=== PATIENT | male | born 1950 | race Caucasian/White ===

== ENCOUNTER 2018-03-21 16:02 | Emergency (ER) | payer MEDICARE, MEDICAID ==
[~2018-03-21] VITALS: Ht 193 cm; Wt 105.0 kg
[2018-03-21 16:51] LABS: IMMATURE GRANULOCYTES 0.5 % (0.0-5.0); MEAN CORPUSCULAR HGB 28.8 pG CALC (26.0-32.0); MEAN CORPUSCULAR HGB CONC 32.8 g/L CALC (32.0-36.0); NEUT# 3.81 thou/uL (1.82-7.42); RED BLOOD COUNT 4.37 mill/uL (4.70-6.10); RED CELL DISTRI WIDTH 15.7 % (11.5-15.5)
[2018-03-21] MEDS ORDERED: RANITIDINE HCL150 MG PO (16:51)
[2018-03-21] MEDS ORDERED: TIZANIDINE HCL2 M1 PO (16:51)
[2018-03-21] MEDS ORDERED: METFORMIN HCL500 M1 PO (16:52)
[2018-03-21] MEDS ORDERED: FUROSEMIDE (16:52)
[2018-03-21] MEDS ORDERED: TAMSULOSIN HCL0.4 MG PO (16:53)
[2018-03-21] MEDS ORDERED: LISINOPRIL5 MG PO (16:53)
[2018-03-21] MEDS ORDERED: CARVEDILOL3.125 MG PO (16:53)
[2018-03-21] MEDS ORDERED: CLOPIDOGREL75 MG PO (16:54)
[2018-03-21] MEDS ORDERED: TRAZODONE (16:54)
[2018-03-21 16:55] LABS: HEMATOCRIT 38.4 % (39.0-50.0); HEMOGLOBIN 12.6 g/dl (14.0-18.0); MEAN CELL VOLUME 87.9 fL CALC (80.0-100.0)
[2018-03-21] MEDS ORDERED: POT CHLORIDE10 ME5 PO (16:55)
[2018-03-21] MEDS ORDERED: K-DUR/KLOR-CON20 MEQ PO (16:55)
[2018-03-21] MEDS ORDERED: ATORVASTATIN CA40 MG PO (16:55)
[2018-03-21 17:03] LABS: ALBUMIN 4.2 g/dL (3.2-5.0); ALKALINE PHOSPHATASE 69 u/l (38-126); ANION GAP 15 (6-22 (CALC)); BILIRUBIN, TOTAL 0.5 mg/dL (0.0-1.4); BUN 17 mg/dL (8-23); BUN/CREATININE RATIO 16 (12-20 (CALC)); CARBON DIOXIDE 28 mmol/l (22-30); CHLORIDE 102 mmol/l (95-108); CREATININE 1.1 mg/dL (0.7-1.3); GFR > 60 ML/MIN (>=60 (CALC)); GFR FOR AFR.AMER. > 60 ML/MIN (>=60 (CALC)); SGOT/AST 15 u/l (19-48); SODIUM 141 mmol/l (137-146); TOTAL PROTEIN 7.4 g/dL (6.3-8.2)
[2018-03-21 17:14] LABS: MYOGLOBIN 52 ng/mL (0 - 121)
[2018-03-21] MEDS ORDERED: MECLIZINE25 MG PO (18:25)
[2018-03-21 18:28] VITALS: BP 120/67
== END 2018-03-21 18:37 | disposition home or self-care (01) ==
LOC: ED 16:02
PROVIDERS: Family Medicine
DX: H81.10 Benign paroxysmal vertigo, unspecified ear (principal); R53.1 Weakness; I10 Essential (primary) hypertension; E11.9 Type 2 diabetes mellitus without complications; Z79.84 Long term (current) use of oral hypoglycemic drugs

== ENCOUNTER 2018-07-11 06:50 | Day surgery (SDC) | payer MEDICARE, OTHER ==
[~2018-07-11] VITALS: Ht 193 cm; Wt 102.1 kg
[~2018-07-11 06:50] MED LIST: ATORVASTATIN CA40 MG PO; CARVEDILOL3.125 MG PO; CLOPIDOGREL75 MG PO; FLUOXETINE40 MG PO; FUROSEMIDE; K-DUR/KLOR-CON20 MEQ PO; LISINOP/HCTZ1 TAB PO; LISINOPRIL5 MG PO; MECLIZINE25 MG PO; METFORMIN HCL500 M1 PO; POT CHLORIDE10 ME5 PO; RANITIDINE HCL150 MG PO; TAMSULOSIN HCL0.4 MG PO; TIZANIDINE HCL2 M1 PO; TRAZODONE PO
[2018-07-11 08:58] VITALS: BP 133/83
== END 2018-07-11 09:40 | disposition home or self-care (01) ==
LOC: ORM 06:50
PROVIDERS: ATTEND Anesthesiology Pain Medicine
PROC: 3E0T3BZ Introduction of Anesthetic Agent into Peripheral Nerves and Plexi, Percutaneous Approach (ICD-10-PCS; principal; 2018-07-11)
PROC: 3E0T33Z Introduction of Anti-inflammatory into Peripheral Nerves and Plexi, Percutaneous Approach (ICD-10-PCS; 2018-07-11)
PROC: BR161ZZ Fluoroscopy of Lumbar Facet Joint(s) using Low Osmolar Contrast (ICD-10-PCS; 2018-07-11)
PROC: 3E0T3BZ Introduction of Anesthetic Agent into Peripheral Nerves and Plexi, Percutaneous Approach (ICD-10-PCS; 2018-07-11)
PROC: 3E0T33Z Introduction of Anti-inflammatory into Peripheral Nerves and Plexi, Percutaneous Approach (ICD-10-PCS; 2018-07-11)
PROC: 3E0T3BZ Introduction of Anesthetic Agent into Peripheral Nerves and Plexi, Percutaneous Approach (ICD-10-PCS; 2018-07-11)
PROC: 3E0T33Z Introduction of Anti-inflammatory into Peripheral Nerves and Plexi, Percutaneous Approach (ICD-10-PCS; 2018-07-11)
DX: M54.5 Low back pain (principal); M12.9 Arthropathy, unspecified; M46.1 Sacroiliitis, not elsewhere classified

== ENCOUNTER 2018-07-25 06:07 | Day surgery (SDC) | payer MEDICARE, OTHER ==
[2018-07-25 13:33] VITALS: BP 140/87
== END 2018-07-25 08:47 | disposition home or self-care (01) ==
LOC: ORM 06:07
PROVIDERS: ATTEND Anesthesiology Pain Medicine
PROC: 3E0T3BZ Introduction of Anesthetic Agent into Peripheral Nerves and Plexi, Percutaneous Approach (ICD-10-PCS; principal; 2018-07-25)
PROC: 3E0T33Z Introduction of Anti-inflammatory into Peripheral Nerves and Plexi, Percutaneous Approach (ICD-10-PCS; 2018-07-25)
PROC: BR161ZZ Fluoroscopy of Lumbar Facet Joint(s) using Low Osmolar Contrast (ICD-10-PCS; 2018-07-25)
PROC: 3E0T3BZ Introduction of Anesthetic Agent into Peripheral Nerves and Plexi, Percutaneous Approach (ICD-10-PCS; 2018-07-25)
PROC: 3E0T33Z Introduction of Anti-inflammatory into Peripheral Nerves and Plexi, Percutaneous Approach (ICD-10-PCS; 2018-07-25)
PROC: 3E0T3BZ Introduction of Anesthetic Agent into Peripheral Nerves and Plexi, Percutaneous Approach (ICD-10-PCS; 2018-07-25)
PROC: 3E0T33Z Introduction of Anti-inflammatory into Peripheral Nerves and Plexi, Percutaneous Approach (ICD-10-PCS; 2018-07-25)
DX: M54.5 Low back pain (principal); M47.817 Spondylosis without myelopathy or radiculopathy, lumbosacral region

== ENCOUNTER → 2018-08-06 | Outpatient (REF) | payer MEDICARE, OTHER ==
[2018-08-06 14:22] LABS: GFR 60 ML/MIN (>=60 (CALC)); GFR FOR AFR.AMER. > 60 ML/MIN (>=60 (CALC))
== END | disposition home or self-care (01) ==
LOC: CT 13:31
PROVIDERS: ATTEND Internal Medicine
DX: I71.4 Abdominal aortic aneurysm, without rupture (principal)
CPT/HCPCS: Q9967

== ENCOUNTER 2019-08-09 | Emergency (ER) | payer MEDICARE, OTHER ==
[2019-08-09 19:23] LABS: HEMATOCRIT 35.9 % (39.0-50.0); HEMOGLOBIN 11.7 g/dl (14.0-18.0); IMMATURE GRANULOCYTES 0.4 % (0.0-5.0); MEAN CELL VOLUME 93.2 fL CALC (80.0-100.0); MEAN CORPUSCULAR HGB 30.4 pG CALC (26.0-32.0); MEAN CORPUSCULAR HGB CONC 32.6 g/L CALC (32.0-36.0); NEUT# 5.87 thou/uL (1.82-7.42); RED BLOOD COUNT 3.85 mill/uL (4.70-6.10); RED CELL DISTRI WIDTH 13.7 % (11.5-15.5)
[2019-08-09] MEDS ORDERED: SM STOOL SOFTE PO (19:23)
[2019-08-09] MEDS ORDERED: ASPIRIN81 MG PO (19:30)
[2019-08-09 19:41] LABS: ALBUMIN 4.1 g/dL (3.2-5.0); ALKALINE PHOSPHATASE 63 u/l (38-126); ANION GAP 12 (6-22 (CALC)); BILIRUBIN, TOTAL 0.7 mg/dL (0.0-1.4); BUN 13 mg/dL (8-23); BUN/CREATININE RATIO 11 (12-20 (CALC)); CARBON DIOXIDE 27 mmol/l (22-30); CHLORIDE 105 mmol/l (95-108); CREATININE 1.2 mg/dL (0.7-1.3); GFR 60 ML/MIN (>=60 (CALC)); GFR FOR AFR.AMER. > 60 ML/MIN (>=60 (CALC)); POTASSIUM 4.6 mmol/l (3.5-5.1); SGOT/AST 16 u/l (19-48); SODIUM 139 mmol/l (137-146)
== END 2019-08-09 21:30 | disposition short-term general hospital (02) ==
PROVIDERS: Family Medicine
DX: R00.1 Bradycardia, unspecified (principal); E11.9 Type 2 diabetes mellitus without complications; I10 Essential (primary) hypertension; I25.10 Atherosclerotic heart disease of native coronary artery without angina pectoris; J44.9 Chronic obstructive pulmonary disease, unspecified

== ENCOUNTER 2020-08-31 04:19 | Emergency (ER) | payer MEDICARE, OTHER ==
[~2020-08-31] VITALS: Ht 193 cm; Wt 109.0 kg
[~2020-08-31 04:19] MED LIST changes: +ASPIRIN81 MG PO; +SM STOOL SOFTE PO
[2020-08-31 07:25] LABS: HEMATOCRIT 41.3 % (39.0-50.0); IMMATURE GRANULOCYTES 0.5 % (0.0-5.0); MEAN CELL VOLUME 96.9 fL CALC (80.0-100.0); MEAN CORPUSCULAR HGB 32.6 pG CALC (26.0-32.0); MEAN CORPUSCULAR HGB CONC 33.7 g/dL CAL (32.0-36.0); NEUT# 4.11 thou/uL (1.82-7.42); RED BLOOD COUNT 4.26 mill/uL (4.70-6.10); RED CELL DISTRI WIDTH 14.3 % (11.5-15.5)
[2020-08-31 07:26] LABS: HEMOGLOBIN 13.9 g/dl (14.0-18.0)
[2020-08-31 07:42] LABS: URINE BILIRUBIN - DIPSTICK NEGATIVE (NEGATIVE); URINE BLOOD DIPSTICK NEGATIVE (NEGATIVE); URINE COLOR YELLOW; URINE GLUCOSE - DIPSTICK NEGATIVE (NEGATIVE); URINE KETONE NEGATIVE (NEGATIVE); URINE LEUK ESTERASE NEGATIVE (NEGATIVE); URINE NITRITE - DIPSTICK NEGATIVE (Negative); URINE PROTEIN - DIPSTICK NEGATIVE (NEG-TRACE); URINE UROBILINOGEN - DIPSTICK 0.2 E.U./dL (0.2)
[2020-08-31 07:56] LABS: ALBUMIN 3.9 g/dL (3.2-5.0); ALKALINE PHOSPHATASE 82 u/l (38-126); BILIRUBIN, TOTAL 0.6 mg/dL (0.0-1.4); BUN 10 mg/dL (8-23); BUN/CREATININE RATIO 9 (12-20 (CALC)); CHLORIDE 97 mmol/l (95-108); CREATININE 1.1 mg/dL (0.7-1.3); GFR > 60 ML/MIN (>=60 (CALC)); GFR FOR AFR.AMER. > 60 ML/MIN (>=60 (CALC)); POTASSIUM 3.9 mmol/l (3.5-5.1); SGOT/AST 21 u/l (19-48); SODIUM 138 mmol/l (137-146); TOTAL PROTEIN 6.6 g/dL (6.3-8.2)
[2020-08-31 08:07] LABS: ANION GAP 11 (6-22 (CALC)); CARBON DIOXIDE 34 mmol/l (22-30)
[2020-08-31] MEDS ORDERED: HYDROCO/APAP1 TA9 PO (09:40)
[2020-08-31 09:54] VITALS: BP 119/62
[2020-09-01] MEDS ORDERED: AMLOD/BENAZP1 CA1 PO (00:21)
[2020-09-01] MEDS ORDERED: ATORVASTATIN CA10 MG PO (00:21)
[2020-09-01] MEDS ORDERED: CARVEDILOL6.25 MG PO (00:22)
[2020-09-01] MEDS ORDERED: FIBER ADULT GUM1 CHW PO (00:24)
[2020-09-01] MEDS ORDERED: BISACODYL5 MG PO (00:24)
[2020-09-01] MEDS ORDERED: FLUOXETINE40 MG PO (00:25)
[2020-09-01] MEDS ORDERED: LASIX20 MG PO (00:26)
[2020-09-01] MEDS ORDERED: MELATONIN10 M1 PO (00:28)
[2020-09-01] MEDS ORDERED: PEG335017 GM/SCOO PO (00:29)
[2020-09-01] MEDS ORDERED: TRAZODONE50 MG PO (00:32)
[2020-09-01] MEDS ORDERED: TRAMADOL HCL50 MG PO (00:34)
[2020-09-01] MEDS ORDERED: NAPROXEN500 MG PO (01:24)
== END 2020-08-31 11:05 | disposition home or self-care (01) ==
LOC: ED 04:19
PROVIDERS: Emergency Medicine
DX: M51.17 Intervertebral disc disorders with radiculopathy, lumbosacral region (principal); I72.4 Aneurysm of artery of lower extremity; I71.4 Abdominal aortic aneurysm, without rupture; I72.3 Aneurysm of iliac artery; E11.9 Type 2 diabetes mellitus without complications; I10 Essential (primary) hypertension; I25.10 Atherosclerotic heart disease of native coronary artery without angina pectoris; J44.9 Chronic obstructive pulmonary disease, unspecified; F17.200 Nicotine dependence, unspecified, uncomplicated; Z95.0 Presence of cardiac pacemaker; Z95.1 Presence of aortocoronary bypass graft; Z79.84 Long term (current) use of oral hypoglycemic drugs; Z95.828 Presence of other vascular implants and grafts
CPT/HCPCS: Q9967

== ENCOUNTER 2020-08-31 21:23 | Emergency (ER) | payer MEDICARE, OTHER ==
[~2020-08-31] VITALS: Ht 193 cm; Wt 110.0 kg
[~2020-08-31 21:23] MED LIST changes: +HYDROCO/APAP1 TA9 PO
[2020-08-31 22:12] LABS: HEMATOCRIT 39.3 % (39.0-50.0); HEMOGLOBIN 12.9 g/dl (14.0-18.0); IMMATURE GRANULOCYTES 0.6 % (0.0-5.0); MEAN CELL VOLUME 97.5 fL CALC (80.0-100.0); MEAN CORPUSCULAR HGB CONC 32.8 g/dL CAL (32.0-36.0); NEUT# 2.93 thou/uL (1.82-7.42); RED BLOOD COUNT 4.03 mill/uL (4.70-6.10); RED CELL DISTRI WIDTH 14.5 % (11.5-15.5)
[2020-08-31 22:27] LABS: ALKALINE PHOSPHATASE 84 u/l (38-126); ANION GAP 11 (6-22 (CALC)); BILIRUBIN, TOTAL 0.6 mg/dL (0.0-1.4); BUN 10 mg/dL (8-23); BUN/CREATININE RATIO 7 (12-20 (CALC)); CARBON DIOXIDE 33 mmol/l (22-30); CHLORIDE 95 mmol/l (95-108); CREATININE 1.4 mg/dL (0.7-1.3); GFR 50 ML/MIN (>=60 (CALC)); GFR FOR AFR.AMER. > 60 ML/MIN (>=60 (CALC)); POTASSIUM 3.7 mmol/l (3.5-5.1); SGOT/AST 21 u/l (19-48); SODIUM 135 mmol/l (137-146); TOTAL PROTEIN 6.8 g/dL (6.3-8.2)
[2020-09-01] MEDS ORDERED: AMLOD/BENAZP1 CA1 PO (00:21)
[2020-09-01] MEDS ORDERED: ATORVASTATIN CA10 MG PO (00:21)
[2020-09-01] MEDS ORDERED: CARVEDILOL6.25 MG PO (00:22)
[2020-09-01] MEDS ORDERED: BISACODYL5 MG PO (00:24)
[2020-09-01] MEDS ORDERED: FIBER ADULT GUM1 CHW PO (00:24)
[2020-09-01] MEDS ORDERED: FLUOXETINE40 MG PO (00:25)
[2020-09-01] MEDS ORDERED: LASIX20 MG PO (00:26)
[2020-09-01] MEDS ORDERED: MELATONIN10 M1 PO (00:28)
[2020-09-01] MEDS ORDERED: PEG335017 GM/SCOO PO (00:29)
[2020-09-01] MEDS ORDERED: TRAZODONE50 MG PO (00:32)
[2020-09-01] MEDS ORDERED: TRAMADOL HCL50 MG PO (00:34)
[2020-09-01] MEDS ORDERED: NAPROXEN500 MG PO (01:24)
[2020-09-01 08:24] VITALS: BP 120/68
== END 2020-09-01 08:24 | disposition home or self-care (01) ==
LOC: ED 21:23
PROVIDERS: Emergency Medicine
DX: S00.81XA Abrasion of other part of head, initial encounter (principal); S00.31XA Abrasion of nose, initial encounter; S73.102A Unspecified sprain of left hip, initial encounter; M51.36 Other intervertebral disc degeneration, lumbar region; E11.9 Type 2 diabetes mellitus without complications; I10 Essential (primary) hypertension; I25.10 Atherosclerotic heart disease of native coronary artery without angina pectoris; J44.9 Chronic obstructive pulmonary disease, unspecified; F17.200 Nicotine dependence, unspecified, uncomplicated; W01.0XXA Fall on same level from slipping, tripping and stumbling without subsequent striking against object, initial encounter; Y92.099 Unspecified place in other non-institutional residence as the place of occurrence of the external cause; Z95.1 Presence of aortocoronary bypass graft; Z95.0 Presence of cardiac pacemaker; Z79.84 Long term (current) use of oral hypoglycemic drugs
CPT/HCPCS: Q9967

== ENCOUNTER 2021-02-23 05:50 | Inpatient (IN) | payer MEDICARE, OTHER ==
[2021-02-23] VITALS (14 sets, daily range): BP systolic 123–148; BP diastolic 66–86
[~2021-02-23] VITALS: Ht 193 cm; Wt 117.6 kg
[~2021-02-23 05:50] MED LIST changes: +AMLOD/BENAZP1 CA1 PO; +ATORVASTATIN CA10 MG PO; +BISACODYL5 MG PO; +CARVEDILOL6.25 MG PO; +FIBER ADULT GUM1 CHW PO; +LASIX20 MG PO; +MELATONIN10 M1 PO; +NAPROXEN500 MG PO; +PEG335017 GM/SCOO PO; +TRAMADOL HCL50 MG PO; +TRAZODONE50 MG PO
--- NOTE | 2021-02-23 06:00 | NUR ---
PT ARRIVED VIA EMS WITH SOB/ON NRB. A/O RESP.
[2021-02-23] MEDS ORDERED: ANTIFUNGAL TOP (06:49)
[2021-02-23] MEDS ORDERED: BANOPHEN50 MG PO (07:01)
[2021-02-23 07:02] LABS: HEMATOCRIT 40.3 % (39.0-50.0); HEMOGLOBIN 13.7 g/dl (14.0-18.0); IMMATURE GRANULOCYTES 0.4 % (0.0-5.0); MEAN CELL VOLUME 97.3 fL CALC (80.0-100.0); MEAN CORPUSCULAR HGB 33.1 pG CALC (26.0-32.0); NEUT# 5.42 thou/uL (1.82-7.42); RED BLOOD COUNT 4.14 mill/uL (4.70-6.10); RED CELL DISTRI WIDTH 12.7 % (11.5-15.5)
[2021-02-23] MEDS ORDERED: DULCOLAX5 MG PO (07:02)
[2021-02-23] MEDS ORDERED: ERYTHROMYCI3 OU (07:05)
[2021-02-23] MEDS ORDERED: ALLERGY NA50 MCG/ACT IN (07:08)
[2021-02-23] MEDS ORDERED: LORTAB 1010 MG PO (07:11)
[2021-02-23 07:18] LABS: ALBUMIN 3.7 g/dL (3.2-5.0); ALKALINE PHOSPHATASE 81 u/l (38-126); ANION GAP 12 (6-22 (CALC)); BILIRUBIN, TOTAL 0.8 mg/dL (0.0-1.4); BUN 11 mg/dL (8-23); BUN/CREATININE RATIO 11 (12-20 (CALC)); CARBON DIOXIDE 32 mmol/l (22-30); CHLORIDE 97 mmol/l (95-108); GFR > 60 ML/MIN (>=60 (CALC)); GFR FOR AFR.AMER. > 60 ML/MIN (>=60 (CALC)); LIPASE 79 u/l (23-300); POTASSIUM 3.2 mmol/l (3.5-5.1); SGOT/AST 27 u/l (19-48); SODIUM 138 mmol/l (137-146); TOTAL PROTEIN 7.2 g/dL (6.3-8.2)
[2021-02-23 07:24] LABS: D-DIMER 3.32 mg/L (0.19-0.60)
[2021-02-23 07:42] LABS: ACT PARTIAL THROMBO TIME 24.5 SECONDS (20.0-32.5); PROTHROMBIN TIME 10.2 SECONDS (9.0-12.5)
--- NOTE | 2021-02-23 09:18 | NUR ---
[facility]APID RESPONSE CALLED AND I ARRIVED IN CT SCAN. PATIENT WAS UNRESPONSIVE AT THE TIME. TECHNICAL WRITING LEAD/MGR REPORTS PATIENT WAS GIVEN THE IV CONTRAST AND REPORTS TINGLING OF LIPS AND THEN WENT UNRESPONSIVE. CALL PLACED TO MD AND PATIENT IS BEING TRABSPORTED BACK TO ER.
--- NOTE | 2021-02-23 09:28 | NUR ---
PATIENT TO ROOM 14, DR ACKERMAN MET AT WHILE TRANSPORTING BACK TO ED. PATIENT REMAINS UNRESPONSIVE. SPO2 68% ON ROOM AIR. PATIENT PLACED ON NB AT 15L. DR ACKERMAN GAVE VERBAL ORDER FOR 0.3 MG OF EPI IM, 50 MG OF BENADRYL IV, 40 MG OF PEPCID, IVP AND 124 MG SOLUMEDROL, IVP. ALL MEDICATIONS GIVEN PERVERBAL ORDER. PATIENT SPO2 REMAINS 80% ON NONREBREATHER.
--- NOTE | 2021-02-23 09:35 | NUR ---
PATIENT INTUBATED BY DR ACKERMAN WITH NO DIFFICULTY WITH A 7.5 ET TUBE MEASURING 29 AT THE LIP. PT SPO2 85% BVM.
--- NOTE | 2021-02-23 09:39 | NUR ---
PATIENT HAS NO PULSE AT THIS TIME. PEA ON THE MONITOR. CODE CALLED. CPR INITIATED. 1 ROUND OF EPI GIVEN AT 0940 AND CPR CONTINUED. 942 PULSE CHECK, STRONG FEMORAL PULSE PALPATED BY DR ACKERMAN. 0946 PATIENT PLACED ON VENT. 0950 PROPOFOL INITIATED AT 10 MCG/KG/MIN. PATIENT REMAINS SEDATED.
--- NOTE | 2021-02-23 10:05 | NUR ---
PROPOFOL INCREASED TO 15 MCG/KG/MIN. PATIENT BP TRENDING DOWN. 113/68. MLP AWARE. UNABLE TO OBTAIN A SECOND IV ACCESS AT THIS TIME. MLP WILL PLACE CENTRAL LINE.
--- NOTE | 2021-02-23 10:15 | NUR ---
PROPOFOL STOPPED AT THIS TIME DUE TO BP OF 75/50. MD NOTIFIED. AWAITING CENTRAL LINE PLACEMENT. UNABLE TO OBTAIN IV ACCESS.
--- NOTE | 2021-02-23 10:24 | NUR ---
EPT GTT INITIATED DUE TO HYPOTENSION AT 5 MCG.
--- NOTE | 2021-02-23 10:34 | NUR ---
PATIENT HYPOTENSIVE AND HAVING SOME MOVEMENTS. MD NOTIFIED. VERBAL ORDER FOR 2 MG OF VERSED GIVEN. 2 MG GIEVN IVP.
--- NOTE | 2021-02-23 11:00 | NUR ---
CETRAL LINE PLACED TO RIGHT IJ WITH NO DIFFICULTY. PT BP 95/56.
--- NOTE | 2021-02-23 11:30 | NUR ---
CARE RELINQUISHED TO ROSARIO LARA. PATIENT REMAINS SEDATED. VERSED DRIP AT 2 MG PER HOUR, POTASSIUM INFUSING, AND EPI GTT INFUSING AT 10 MCG.
[2021-02-23 12:24] LABS: ALKALINE PHOSPHATASE 67 u/l (38-126); BILIRUBIN, TOTAL 0.6 mg/dL (0.0-1.4); BUN 11 mg/dL (8-23); BUN/CREATININE RATIO 10 (12-20 (CALC)); CHLORIDE 101 mmol/l (95-108); CREATININE 1.1 mg/dL (0.7-1.3); GFR > 60 ML/MIN (>=60 (CALC)); GFR FOR AFR.AMER. > 60 ML/MIN (>=60 (CALC)); POTASSIUM 3.2 mmol/l (3.5-5.1); SGOT/AST 38 u/l (19-48); SODIUM 134 mmol/l (137-146)
[2021-02-23 12:27] LABS: ALBUMIN 2.6 g/dL (3.2-5.0); ANION GAP 11 (6-22 (CALC)); CARBON DIOXIDE 25 mmol/l (22-30); TOTAL PROTEIN 5.1 g/dL (6.3-8.2)
--- NOTE | 2021-02-23 14:00 | NUR ---
VERSED gtt INCREASED TO 30ml's/hour
--- NOTE | 2021-02-23 14:47 | NUR ---
S: EVERETTE HERNANDEZ is a 71 M who presents with pneumonia. He has a history of diabetes, HTN, CAD, COPD. All medications in patient's chart were reviewed. O: VS: BP 166/86 mmHg, P 88 bpm, RR 17 bpm, T 98.2 F W 109 kg, HT 76 in, Scr= 1.1 mg/dl, CrCl= 83.4 ml/min A: Blood culture is pending. P: Patient is on cefepime 2 g IV Q8H and metronidazole 500 mg IV Q8H. Vancomycin ordered for pharmacy to dose. Start Vancomycin 1250 mg IV Q12H. Vancomycin trough is drawn before the 4th dose on 02/25/21 @ 0530. Vancomycin goal trough is between 15-20 mcg/ml. Pharmacy will follow and or advise on antibiotics use as needed.
--- NOTE | 2021-02-23 14:49 | NUR ---
Reassessment of patient completed. No distress noted. PATIENT REMAINS ON VENTILATOR
--- NOTE | 2021-02-23 15:05 | NUR ---
CALL TO ICU FOR REPORT
--- NOTE | 2021-02-23 15:21 | NUR ---
VERSED gtt. INCREASED TO 35/ML/HOUR
--- NOTE | 2021-02-23 15:34 | NUR ---
CALL TO ICU FOR REPORT
--- NOTE | 2021-02-23 18:30 | NUR ---
PATIENT TO ICU BED 2 VIA ER STRETCHER ACCOMPANIED BY ER NURSE AND RT. PATIENT IS INTUBATED AND SEDATED. PATIENT PLACED ON MONITOR. VSS AT THIS TIME. SR TO ST ON MONITOR. IV PATENT X2. IV MEDS INFUSING PER AUG.
--- NOTE | 2021-02-23 20:00 | NUR ---
PATIENT INTUBATED, ON VENT. VENT SETTINGS DOCUMENTED IN INTERVENTIONS. VERSED GTT INFUSING AT 5 MG/HR FOR SEDATION. RASS -3. BREATH SOUNDS DIMINISHED ESSENTIALLY CLEAR. O2 SAT 98% OG IN PLACE TO LIS DRAINS SMALL AMOUNT OF CLEAR MATERIAL. SUX ETT FOR SCANT AMOUNT AND ORALLY FOR MODERATE AMOUNT OF THICK WHITE SECRETIONS. NO PERIPHERAL EDEMA. BAGLEY DRAINS CLEAR YELLOW URINE. RIJTLC IN PLACE WITH VERSED GTT INFUSING AT 5 MG/HR AND EPINEPHERINE GTT INFUSING AT 10 MCG/MIN. VSS. SOCK LINING EXAMINER SHOWS PACED RHYTH.
--- NOTE | 2021-02-23 22:00 | NUR ---
INTUBATED AND SEDATED. RASS-3. VERSED GTT CONTIUES AT 5 MG/HR. EPI GTT DOWN TO 6 MCG/MIN. VSS. PACED ON MONITOR.
[2021-02-24] VITALS (26 sets, daily range): BP systolic 118–175; BP diastolic 64–86
--- NOTE | 2021-02-24 | NUR ---
WEANING EPI GTT, DOWN TO 4 MCG/MIN. PATIENT CONTINUES ON VENT. VSS.
--- NOTE | 2021-02-24 02:00 | NUR ---
VSS. PACED ON MONITOR.
--- NOTE | 2021-02-24 04:00 | NUR ---
REMAINS INTUBATED, SEDATED ON VERSED GTT AT 5 MG/HR. VSS.
--- NOTE | 2021-02-24 04:00 | NUR ---
NO CHANGES TO REPORT. REMAINS INTUBATED AND SEDATED. EPI GTT WEANED OFF EARLIER. VSS. BAGLEY DRAINS CLEAR YELLOW.
[2021-02-24 06:12] LABS: CREATININE 1.4 mg/dL (0.7-1.3); HEMATOCRIT 39.1 % (39.0-50.0); HEMOGLOBIN 13.1 g/dl (14.0-18.0); MEAN CELL VOLUME 98.2 fL CALC (80.0-100.0); MEAN CORPUSCULAR HGB 32.9 pG CALC (26.0-32.0); MEAN CORPUSCULAR HGB CONC 33.5 g/dL CAL (32.0-36.0); POTASSIUM 3.6 mmol/l (3.5-5.1); RED BLOOD COUNT 3.98 mill/uL (4.70-6.10)
--- NOTE | 2021-02-24 08:30 | NUR ---
INFORMED MD OF DOWNWARD DEVIATED GAZE
--- NOTE | 2021-02-24 09:46 | NUR ---
Patient is screened for PT and no needs are immediately identified although a future consult may be indicated if medical agrees
--- NOTE | 2021-02-24 10:15 | NUR ---
TRANSPORTED PT WITH RT TO CT FOR CT HEAD. NO S/S OF DISTRESS NOTED
--- NOTE | 2021-02-24 11:27 | NUR ---
Pt screened by ST. Intervention recommended pending extubation. COLOR MAKER DYER will continue to follow for updated status.
--- NOTE | 2021-02-24 16:18 | NUR ---
TITRATING VERESED DOWN, NO RESPONSE TO PAIN, OR VERBAL STIMULATION
--- NOTE | 2021-02-24 19:06 | NUR ---
PEÑA MANCIA SPOKE TO CHANDNI WAS GIVEN CONFIRMATION NUMBER [id number] FOR AIR MATTRESS.
--- NOTE | 2021-02-24 20:00 | NUR ---
PATIENT RESTING IN BED INTUBATED, ON VENT. VENT SETTINGS DOCUMENTED IN INTERVENTION SCREEN. SEDATED ON VERSED GTT AT 2 MG/HR. RASS -4 TO -5. BREATH SOUNDS DIMINISHED THROUGHOUT LUNG LOUISE. OG TUBE IN PLACE TO LIS, DRAINING GREENISH/GOLD. BAGLEY DRAINS CLEAR YELLOW URINE. URINE OBTAINED FOR UA. TRACE GENERALIZED EDEMA PRESENT. SCD'S ON BILATERALLY. LIJ TLC IN PLACE AND SALINE LOCK INTACT IN LAC, SITE BENIGN. BOAT WORKER SHOWS PACED RHYTHM
--- NOTE | 2021-02-24 22:00 | NUR ---
INTUBATED AND SEDATED. REMAINS ON VERSED GTT. VSS. PACED RHYTHM ON MONITOR.
[2021-02-25] VITALS (41 sets, daily range): BP systolic 138–229; BP diastolic 69–108
--- NOTE | 2021-02-25 | NUR ---
NO CHANGES TO RPEORT. REMAINS INTUBATED AND SEDATED. VSS. PACED RHYTHM ON MONITOR.
[2021-02-25 00:48] LABS: URINE BILIRUBIN - DIPSTICK NEGATIVE (NEGATIVE); URINE BLOOD DIPSTICK NEGATIVE (NEGATIVE); URINE COLOR YELLOW; URINE GLUCOSE - DIPSTICK NEGATIVE (NEGATIVE); URINE KETONE TRACE mg/dL (NEGATIVE); URINE LEUK ESTERASE NEGATIVE (NEGATIVE); URINE PROTEIN - DIPSTICK 30 mg/dL (NEG-TRACE); URINE UROBILINOGEN - DIPSTICK 0.2 E.U./dL (0.2)
[2021-02-25 00:49] LABS: URINE NITRITE - DIPSTICK NEGATIVE (Negative)
[2021-02-25 00:56] LABS: URINE COARSE GRANULAR CAST FEW lpf; URINE SQUAMOUS EPITHELIAL CELL FEW EPI/hpf (0-FEW)
--- NOTE | 2021-02-25 04:30 | NUR ---
BLOOD DRAWN FROM [facility] FOR AM LAB WORK. ALL LUMENS OF TLC FLUSHED AND PATENT WITH GOOD BLOOD RETURN.
--- NOTE | 2021-02-25 05:00 | NUR ---
COMPLETE BED BATH GIVEN AND LINENS CHANGED. REPOSITONED IN BED.
[2021-02-25 05:49] LABS: HEMATOCRIT 37.4 % (39.0-50.0); HEMOGLOBIN 12.3 g/dl (14.0-18.0); IMMATURE GRANULOCYTES 1.3 % (0.0-5.0); MEAN CELL VOLUME 99.7 fL CALC (80.0-100.0); MEAN CORPUSCULAR HGB 32.8 pG CALC (26.0-32.0); MEAN CORPUSCULAR HGB CONC 32.9 g/dL CAL (32.0-36.0); NEUT# 10.92 thou/uL (1.82-7.42); RED BLOOD COUNT 3.75 mill/uL (4.70-6.10); RED CELL DISTRI WIDTH 13.5 % (11.5-15.5)
[2021-02-25 06:11] LABS: ALBUMIN 2.7 g/dL (3.2-5.0); ALKALINE PHOSPHATASE 54 u/l (38-126); ANION GAP 9 (6-22 (CALC)); BILIRUBIN, TOTAL 0.3 mg/dL (0.0-1.4); BUN 30 mg/dL (8-23); BUN/CREATININE RATIO 22 (12-20 (CALC)); C-REACTIVE PROTEIN 5.5 mg/dL (0-0.9); CARBON DIOXIDE 26 mmol/l (22-30); CHLORIDE 108 mmol/l (95-108); CREATININE 1.3 mg/dL (0.7-1.3); GFR 54 ML/MIN (>=60 (CALC)); GFR FOR AFR.AMER. > 60 ML/MIN (>=60 (CALC)); POTASSIUM 3.8 mmol/l (3.5-5.1); SGOT/AST 22 u/l (19-48); SODIUM 140 mmol/l (137-146); TOTAL PROTEIN 5.4 g/dL (6.3-8.2)
--- NOTE | 2021-02-25 06:45 | NUR ---
REPORT RECEIVED FROM BAN PONCE. CARE ASSUMED.
--- NOTE | 2021-02-25 07:20 | NUR ---
PATIENT RESTING IN BED INTUBATED AND SEDATED. SHIFT ASSESSMENT COMPLETED AT THIS TIME. IV PATENT X1. SEDATION DECREASED PER TITRATION CHARTING. VSS ON MONITOR. WILL CONTINUE TO MONITOR.
--- NOTE | 2021-02-25 07:21 | NUR ---
PT RESTING C NAD. VSS. ETT PATENT AND SECURE. EQUITY SALES ASSISTANT TO MONITOR.
--- NOTE | 2021-02-25 08:10 | NUR ---
BP ELEVATED. PATIENT AWAKE. PATIENT UNABLE TO FOLLOW VERBAL COMMANDS. RT AT BEDSIDE FOR SBT. CORNEAL REFLEX NOTED. GAG REFLEX NOTED. PATIENT DOES NOT TRACK TO VOICE. INCREASED VERSED PER TITRATION CHARTING AT THIS TIME. WILL CONTINUE TO MNITOR.
--- NOTE | 2021-02-25 08:11 | NUR ---
08 SBT INITIATED. 808 SBT D/Cd PER PT VS/ BP INCREASED. RSBI > 120. PT UNRESPONSIVE TO COMMANDS. PLACED ON PRIOR SETTINGS. NAD. RN IN ROOM. LOCAL TRUCK DRIVER TO MONITOR.
--- NOTE | 2021-02-25 10:00 | NUR ---
PROPOFOL STARTED PER PROTOCOL AT THIS TIME SEE TITRATION CHARTING.
--- NOTE | 2021-02-25 10:17 | NUR ---
NO CHANGES AT HTIS TIME. COLOR REPAIRER TO MONITOR.
--- NOTE | 2021-02-25 12:00 | NUR ---
PATIENT RESTING IN BED INTUBATED AND SEDATED. VSS ON MONITOR. WILL CONTINUE TO MONITOR.
--- NOTE | 2021-02-25 14:00 | NUR ---
PATIENT RESTING IN BED INTUBATED AND SEDATED. VSS ON MONITOR. WILL CONTINUE TO MONITOR.
--- NOTE | 2021-02-25 16:01 | NUR ---
PATIENT RESTING IN BED INTUBATED AND SEDATED. NO DISTRESS NOTED. VSS ON MONITOR. WILL CONTINUE TO MONITOR.
--- NOTE | 2021-02-25 18:17 | NUR ---
PATIENT RETING IN BED INTUBATED AND SEDATED. VSS ON MONITOR. WILL CONTINUE TO MONITOR.
--- NOTE | 2021-02-25 19:20 | NUR ---
PATIENT RESTING IN BED INTUBATED AND SEDATED AT THIS TIME. VSS ON MONITOR. WILL CONTINUE TO MONITOR.
--- NOTE | 2021-02-25 20:30 | NUR ---
UNABLE TO FLUSH OG AT THIS TIME DURING MED PASS. CHANGED OG TO NG AT THIS TIME. + AUSCULTATION NOTED. FLUSHED WITH EASE.
--- NOTE | 2021-02-25 22:10 | NUR ---
PATIENT RESTING INBED INTUBATED AND SEDATED. VSS ON MONITOR. BP ELEVATED. PATIENT PREVIOUSLY MEDICATED WITH LABETALOL. WILL CONTINUE TO MONITOR CLOSELY
[2021-02-26] VITALS (22 sets, daily range): BP systolic 124–198; BP diastolic 57–95
--- NOTE | 2021-02-26 00:20 | NUR ---
POINT OF CARE GLUCOSE 187mg/dl.
--- NOTE | 2021-02-26 01:00 | NUR ---
F/U ON PRN APRESOLINE ADMINISTERED FOR 0000 NIBP OF 187/92mmHg. NIBP CURRENTLY 138/64mmHg. REMAINS PACED AT 60.
--- NOTE | 2021-02-26 02:00 | NUR ---
PT SKIN COOL AND DRY TO TOUCH. WARM BLANKET APPLIED.
--- NOTE | 2021-02-26 05:15 | NUR ---
Chasidy GASPAR NUCLEAR CHEMISTRY TECHNICIAN AT BEDSIDE FOR ABG. AM LABS ALSO COLLECTED AT THIS TIME.
[2021-02-26 05:49] LABS: HEMATOCRIT 36.6 % (39.0-50.0); HEMOGLOBIN 12.3 g/dl (14.0-18.0); MEAN CELL VOLUME 100.8 fL CALC (80.0-100.0); MEAN CORPUSCULAR HGB 33.9 pG CALC (26.0-32.0); MEAN CORPUSCULAR HGB CONC 33.6 g/dL CAL (32.0-36.0); RED BLOOD COUNT 3.63 mill/uL (4.70-6.10); RED CELL DISTRI WIDTH 13.6 % (11.5-15.5)
[2021-02-26 06:02] LABS: ANION GAP 9 (6-22 (CALC)); BUN 33 mg/dL (8-23); BUN/CREATININE RATIO 32 (12-20 (CALC)); CARBON DIOXIDE 23 mmol/l (22-30); CHLORIDE 112 mmol/l (95-108); GFR > 60 ML/MIN (>=60 (CALC)); GFR FOR AFR.AMER. > 60 ML/MIN (>=60 (CALC)); POTASSIUM 3.9 mmol/l (3.5-5.1); SODIUM 140 mmol/l (137-146)
--- NOTE | 2021-02-26 06:52 | NUR ---
WEANED PER PT SPO2. DAYANA WELL AT THIS TIME INTERPRETER DEAF TO MONITOR.
--- NOTE | 2021-02-26 08:37 | NUR ---
S: EVERETTE HERNANDEZ is a 71 M who presents with pneumonia. He has a history of diabetes, HTN, CAD, COPD. All medications in patient's chart were reviewed. O: Vancomycin trough = 16 ug/ml VS: BP 156/72 mmHg, P 62 bpm, RR 18 bpm, T 97.5 F W 108 kg, HT 76 in, Scr=1.3 mg/dl, CrCl= 70.5 ml/min A: Vancomycin trough level is therapeutic. Preliminary blood culture show no growth. P: Patient is on cefepime 2 g IV Q8H and metronidazole 500 mg IV Q8H. Vancomycin ordered for pharmacy to dose. Continue vancomycin 1250 mg IV Q12H. Vancomycin trough is drawn before the 4th dose on 02/27/21 @ 0530. Vancomycin goal trough is between 15-20 mcg/ml. Pharmacy will follow and or advise on antibiotics use as needed.
--- NOTE | 2021-02-26 09:57 | NUR ---
NO CHANGES AT THIS TIME. MONUMENT MASON TO MONITOR.
--- NOTE | 2021-02-26 19:00 | NUR ---
REPORT RECEIVED FROM Abelino CAMPBELL RN, CARE OF PT ASSUMED AT THIS TIME.
--- NOTE | 2021-02-26 19:05 | NUR ---
MEETS CRITERIA FOR RESTRAINT RELEASE. B/L SOFT WRIST RESTRAINTS DISCONTINUED.
--- NOTE | 2021-02-26 19:30 | NUR ---
BLE WARM TO TOUCH. COLOR WNL. PULSES PRESENT. CAP REFILL BRISK. TRACE NON-PITTING EDEMA. BUE ELEVATED. COOL TO TOUCH. SCATTERED BRUISING. EDEMA. PULSES PRESENT. CAP REFILL SLUGGISH. WARM BLANKET APPLIED FOR COMFORT.
--- NOTE | 2021-02-26 21:00 | NUR ---
SPOKE WITH DR. SMYTH REGARDING ASSESMENT FINDINGS. ELEVATED B/P REPORTED. SUGGEST BETA-NELSON IN ADDITION TO HYDRALAZINE. ORDER FOR LABETALOL IV PRN RECEIVED. REPORTED SMALL TO MODERATE BLOOD IN ORAL CAVITY AND GASTRIC CONTENT NOTED FROM NG BRENDA IS RUST RED AND SUSPECT BLEEDING. SUGGESTION TO HOLD LOVENOX AND ADD PPI TO MEDICATION REGIMEN. NO NEW ORDERS RECEIVED AT THIS TIME. DR. SMYTH ALSO ADVISED COMPLETING CT OF HEAD WILL BE FURTHER DELAYED D/T CRYPTOLOGICAL TECHNICIAN AND HUNTER SKIN DIVER AVAILABILITY. ORDER IS TO CONTINUE TO ATTEMPT TO GET CT HEAD WHEN POSSIBLE.
--- NOTE | 2021-02-26 22:00 | NUR ---
ET SUCTION PERFORMED. SMALL AMOUNT TENACIOUS STANTON MUCOUS SUCTIONED. LUNGS REMAIN CLEAR AND DIMINISHED. GAG REFLEX PRESENT. SPO2 REMAINS >/= 90% DURING SUCTIONING. THOROUGH ORAL SUCTIONING AND ORAL CARE PERFORMED. SMALL AMOUNT OF BLOOD SUCTIONED FROM MOUTH. NO ACTIVE BLEEDING NOTED TO ORAL CAVITY. MOUTH AND LIP MOISTURIZER APPLIED FOR COMFORT.
[2021-02-27] VITALS (15 sets, daily range): BP systolic 158–191; BP diastolic 74–88
--- NOTE | 2021-02-27 03:30 | NUR ---
PT TRANSPORTED TO AND FROM CT WITHOUT INCIDENT FOR CT HEAD. ASSISTED BY Queta SANTOS RRT.
--- NOTE | 2021-02-27 04:00 | NUR ---
BED BATH AND LINEN CHANGE COMPLETED. R-FA SKIN TEAR NOTED, APRROX 1CM. WASHED WITH SALINE. ADAPTIC DRESSING APPLIED. SECURED WITH DUODERM. STAGE 2 BREAKDOWN NOTED TO COCCYX. PHOTO DOCUMENTATION OBTAINED. WOUND CARE CONSULTED. DUODERM APPLIED.
--- NOTE | 2021-02-27 05:01 | NUR ---
AM LABS COLLECTED VIA R-IJ TLC. GOOD BLOOD RETURN, FLUSHES EASILY. Queta SANTOS SOAPING DEPARTMENT SUPERVISOR AT BEDSIDE COLLECTING ABG FROM L-RADIAL ARTERY.
--- NOTE | 2021-02-27 05:25 | NUR ---
PORTABLE CHEST X-RAY BEING DONE AT BEDSIDE.
[2021-02-27 05:41] LABS: HEMATOCRIT 38.3 % (39.0-50.0); HEMOGLOBIN 12.5 g/dl (14.0-18.0); IMMATURE GRANULOCYTES 1.9 % (0.0-5.0); MEAN CELL VOLUME 101.3 fL CALC (80.0-100.0); MEAN CORPUSCULAR HGB 33.1 pG CALC (26.0-32.0); MEAN CORPUSCULAR HGB CONC 32.6 g/dL CAL (32.0-36.0); NEUT# 9.44 thou/uL (1.82-7.42); RED BLOOD COUNT 3.78 mill/uL (4.70-6.10); RED CELL DISTRI WIDTH 13.8 % (11.5-15.5)
[2021-02-27 06:14] LABS: ALBUMIN 2.8 g/dL (3.2-5.0); ALKALINE PHOSPHATASE 56 u/l (38-126); ANION GAP 9 (6-22 (CALC)); BILIRUBIN, TOTAL 0.3 mg/dL (0.0-1.4); BUN 37 mg/dL (8-23); BUN/CREATININE RATIO 32 (12-20 (CALC)); C-REACTIVE PROTEIN 2.3 mg/dL (0-0.9); CARBON DIOXIDE 23 mmol/l (22-30); CHLORIDE 112 mmol/l (95-108); CREATININE 1.2 mg/dL (0.7-1.3); GFR 60 ML/MIN (>=60 (CALC)); GFR FOR AFR.AMER. > 60 ML/MIN (>=60 (CALC)); POTASSIUM 3.6 mmol/l (3.5-5.1); SGOT/AST 19 u/l (19-48); SODIUM 141 mmol/l (137-146); TOTAL PROTEIN 5.5 g/dL (6.3-8.2)
--- NOTE | 2021-02-27 07:10 | NUR ---
PT SEDATION OFF FOR SBT, PT EYES OPEN, NOT FOLLOWING COMMANDS
--- NOTE | 2021-02-27 07:12 | NUR ---
PALCED T ON SBT 5.5 . 4. PT DAYANA WELL AT THIS TIME. REPRESENTATIVE GOVERNMENT RELATIONS TO MONITOR. RN AWARE.
--- NOTE | 2021-02-27 09:15 | NUR ---
SEDATION GTTS BACK ON. NO EXTUBATION TODAY PER MD.
--- NOTE | 2021-02-27 09:37 | NUR ---
NO EXTUBATION PER DR SMYTH. CORPORATE EXECUTIVE TO MONITOR.
--- NOTE | 2021-02-27 12:17 | NUR ---
S: EVERETTE HERNANDEZ is a 71 M who presents with pneumonia. O: Vancomycin trough 02/27 @ 0530 = 20 mcg/ml W 108 kg, H 76 in, SCr 1.2 mg/dl, CrCl 86.3 ml/min A: Blood culture is pending. P: Patient is on cefepime 2g IV q8h and Flagyl 500mg IV q8h. Vancomycin ordered for pharmacy to dose. Start Vancomycin 1g IV Q12H. Vancomycin trough is drawn before the 4th dose on 02/28 @ 2100. Vancomycin goal trough is between 15-20 mcg/ml. Pharmacy will follow and or advise on antibiotics use as needed.
--- NOTE | 2021-02-27 12:53 | NUR ---
pt still on spontaneous mode of ventilation. no signs of distress. hr, bp, spo2, rr, and all respiratry mechanics wnl. plumber's helper to monitor.
--- NOTE | 2021-02-27 13:35 | NUR ---
PT MEDICATED FOR HTN PER EMAR
--- NOTE | 2021-02-27 14:00 | NUR ---
PT MEDICATED FOR PAIN PER EMAR
--- NOTE | 2021-02-27 19:00 | NUR ---
REPORT RECEIVED FROM Abelino CAMPBELL RN, CARE OF PT ASSUMED AT THIS TIME.
--- NOTE | 2021-02-27 20:00 | NUR ---
PT SEMIFOWLERS POSITION. ET TUBE IN PLACE, SECURED AT 23CM AT LIP. ET TUBE SECURED ON R-SIDE OF MOUTH. VENT ON SPONTANEOUS MODE. RR OF 20. TV 441. PEEP 5. FIO2 40%. SPO2 91%. PT SEDATED. PROPOFOL INFUSING @45MCG. OPENS EYES SPONTANEOUSLY. DOES NOT FOLLOW DIRECTION OR MAKE ANY MOVEMENT. NGT TO R-NARE SECURED. SET TO LIS. SMALL AMOUNTS RUST RED-BROWN GASTRIC CONTENT APPRECIATED. ABD SOFT. BOWEL SOUNDS PRESENT. R-IJ TLC SECURE, INFUSING PROPOFOL AND NS KVO. BAGLEY DRAINING CLEAR CHUY URINE. SECURED TO LEG. TUBING UNKINKED AND UNOBSTRUCTED. EXTREMITIES COOL AND DRY. BUE WITH EDEMA AND SCATTERED BRUISING. ELEVATED ON PILLOWS. BLE WITH SCDS ON. R-FA SKIN TEAR AND COCCYX WOUND REMAIN WITH DUODERM DRESSING C/D/I. COVID-19 ISOLATION MAINTAINED. BED LOCKED IN LOW POSITION WITH BEDRAILS UP X2.
--- NOTE | 2021-02-27 20:50 | NUR ---
POINT OF CARE GLUCOSE 159mg/dl.
--- NOTE | 2021-02-27 22:00 | NUR ---
ET SUCTION PERFORMED. IN-LINE SUCTION CATHETER UNABLE TO EXTEND IN ENTIRETY. APPEARS TO BE BLOCKAGE IN ET TUBE. Queta SANTOS SOFTWARE QUALITY SPECIALIST MADE AWARE. THOROUGH MOUTH CARE COMPLETED. ORAL SUCTIONING COMPLETED. MODERATE AMOUNTS SALIVA MIXED WITH BLOOD SUCTIONED FROM ORAL CAVITY. UNABLE TO LOCATE ANY AREA OF ACTIVE BLEEDING. DR. SMYTH PREVIOUSLY MADE AWARE 02/26/21. SEE NOTE. MOUTH MOISTURIZER APPLIED. PT REPOSITIONED FOR COMFORT.
--- NOTE | 2021-02-27 23:00 | NUR ---
400ML CLEAR CHUY URINE EMPTIED FROM BAGLEY. BAGLEY REMAINS SECURED TO LEG, UNKINKED, UNOBSTRUCTED, DRAINING TO GRAVITY.
--- NOTE | 2021-02-27 23:41 | NUR ---
POINT OF CARE GLUCOSE 159mg/dl.
[2021-02-28] VITALS (23 sets, daily range): BP systolic 121–204; BP diastolic 56–104
--- NOTE | 2021-02-28 00:36 | NUR ---
BLOOD NOTED TO ET. SPO2 MAINTAINS 87%. Queta SANTOS MANAGER BUSINESS INTELLIGENCE CALLED TO BEDSIDE. THOUROUGH LAVAGE AND SUCTION DONE BY Queta SANTOS MANAGER BUSINESS INTELLIGENCE. A/C RESUMED ON VENT BY Queta SANTOS RN. FIO2 60% TV 450 PEEP 5 RATE 26. SPO2 INCREASES AND MAINTAINS AT 92-93%. APPROXIMATELY 25 MINUTES SPENT AT BEDSIDE.
--- NOTE | 2021-02-28 00:52 | NUR ---
PT PLACED BACK ON AC MODE FOLLOWUNG CPAP ALL DAY. NOW ON AC 26, Vt 450, PEEP +5, 60%. PT WITH INCREASED WORK OF BREATHING, COPIUS BLOODY SECRETIONS REQUIRING FREQUENT SX.
--- NOTE | 2021-02-28 05:00 | NUR ---
500ML CLEAR YELLOW URINE EMPTIED FROM BAGLEY.
--- NOTE | 2021-02-28 05:25 | NUR ---
PCXR BEING DONE AT THIS TIME.
--- NOTE | 2021-02-28 05:40 | NUR ---
AM LABS COLLECTED VIA TLC.
--- NOTE | 2021-02-28 05:50 | NUR ---
PT TRANSFERRED ONTO AIR MATTRESS.
[2021-02-28 06:00] LABS: HEMATOCRIT 38.1 % (39.0-50.0); HEMOGLOBIN 12.4 g/dl (14.0-18.0); IMMATURE GRANULOCYTES 0.9 % (0.0-5.0); MEAN CELL VOLUME 101.9 fL CALC (80.0-100.0); MEAN CORPUSCULAR HGB 33.2 pG CALC (26.0-32.0); MEAN CORPUSCULAR HGB CONC 32.5 g/dL CAL (32.0-36.0); NEUT# 9.73 thou/uL (1.82-7.42); RED BLOOD COUNT 3.74 mill/uL (4.70-6.10); RED CELL DISTRI WIDTH 13.8 % (11.5-15.5)
[2021-02-28 06:01] LABS: ALBUMIN 2.6 g/dL (3.2-5.0); ALKALINE PHOSPHATASE 53 u/l (38-126); ANION GAP 10 (6-22 (CALC)); BILIRUBIN, TOTAL 0.3 mg/dL (0.0-1.4); BUN 34 mg/dL (8-23); BUN/CREATININE RATIO 33 (12-20 (CALC)); CARBON DIOXIDE 23 mmol/l (22-30); CHLORIDE 114 mmol/l (95-108); GFR > 60 ML/MIN (>=60 (CALC)); GFR FOR AFR.AMER. > 60 ML/MIN (>=60 (CALC)); POTASSIUM 3.9 mmol/l (3.5-5.1); SGOT/AST 16 u/l (19-48); SODIUM 142 mmol/l (137-146); TOTAL PROTEIN 5.1 g/dL (6.3-8.2)
--- NOTE | 2021-02-28 08:00 | NUR ---
PATIENT IS STILL ON A VENT, STARTED TO TITRATE HIM OFF SEDATION WHEN I FIRST CAME IN, HE IS COMPLETELY OFF OF 808. HE HAD HIS EYES SLIGHLY OPEN WHEN I CAME INTO THE ROOM, RESTRAINTS ARE IN PLACE, FOLLOWS GUIDLINES ON PLACEMENT OF THE RESTRAINTS. NORMAL HEART SOUNDS. NSR AT THIS TIME. EDEMA IN BILAT ARMS AND LEGS 1+ PITTING. ACTIVE BOWEL SOUNDS IN UPPER QUADS, HYPO IN LOWER QUADS. DIMINISHED LUNG SOUNDS THROUGHOUT. EDEMA TRACED IN BILAT FEET. SCDS ARE IN PLACE AND ON. SAFETY MEASURES IN PLACE. WILL CHIDIUE TO MONITOR PER HOSPITAL'S POLCIY.
--- NOTE | 2021-02-28 09:00 | NUR ---
PATIENT IS WAKING UP OFF SEDATION, DOES TURN HIS HEAD SIDE TO SIDE. TRYING TO LIMIT HIS SEDATION. USING PRN MEDICATIONS TO HELP COMFORT HIM AND STABLIZE HIS VITALS.
--- NOTE | 2021-02-28 11:00 | NUR ---
PATIENT IS UP, HAD A SMALL LOOSE BROWN BM. CLEANED UP, REPOSITIONED, TURNS HIS HEAD WHEN YOU ARE SPEAKING TOWARDS YOU. SQUEEZES HANDS, MOVES BOTH HIS LEGS. HE IS TRYING TO GET HIS LEGS OFF THE BED.
--- NOTE | 2021-02-28 11:20 | NUR ---
TEXTED DR. JEFFERS ON AN UPDATE ON THIS PATIENT, STATES TO HOLD THE NEURO CONSULT AND TRY AND HOLD OFF THE VERSED. CURRENTLY ONLY TITRATING HIM BACK ON PROPOFOL.
--- NOTE | 2021-02-28 12:44 | NUR ---
PAGED RT FOR SOME HELP, RT SUCTIONED HIM OUT, STATED HE MUST'VE BROKE SOMETHING UP BECAUSE HIS ET WAS NOT ABLE TO BE PUSHED DOWN FURTHER TO SUCTION. HAD BLOOD CLUMPS COMING OUT OF THE ET. RT WAS ABLE TO FIX THE ISSUE. PATIENT O2 SATS NEVER WENT DOWN. WAS CONCERNED BECAUSE HE WAS UNCOMFORTABLE. PATIENT IS NOW COMFORTABLE. WILL TITARTE SEDATION DOWN TO SEE IF HE CAN TOLERATE IT.
--- NOTE | 2021-02-28 12:56 | NUR ---
CALLED TO BEDSIDE BY RN, DUE TO VENT ALARMING AND PT APPEARING TO BE WORKING AGAINST THE VENTILATOR. UPIN ARRIVAL RT NOTICED THAT VOLUMES WERE NOT EFFECTIVELY BEING DELIVERED TO THE PATIENT. WEBBER WOULD NOT FULLY PASS THE ETT WAS NOT PATENT. SALINE DELIVERED DOWN ETT WITH MULTIPLE LAVAGES. DOCTOR ROSENTHAL WAS NOTIFIED OF POSSIBLE NEED TO CHANGE ETT IF UNABLE TO CLEAR THE OBSTRUCTION. UBSTRUCTION WAS FINALLY CLEARED AND VOLUMES WERE EFFETIVELY DELIVERED. DR. ROSENTHAL CAME TO BESIDE TO MAKE SURE THE ISSUE HAD BEEN REMEDIED. FURTHER SUCTIONING NEEDED AND DONE.
--- NOTE | 2021-02-28 14:00 | NUR ---
PATIENT IS RESTING IN BED, SEDATION CONTINUED. APPEARS COMFORTABLE.
--- NOTE | 2021-02-28 14:45 | NUR ---
DRESSING CHANGED ON IV SITE. CLEAN DRY AND INTACT.
--- NOTE | 2021-02-28 16:00 | NUR ---
PATIENT APPEARS COMFORTABLE IN BED, VITALS ARE STABLE.
--- NOTE | 2021-02-28 19:32 | NUR ---
REPORT RECEIVED FROM OFF-GOING RN. PT RESTING WITH EYES CLOSED ON VENTILATOR WITH PROFOFOL INFUSING FOR SEDATION. NO DISTRESS NOTED. ELEVATED BP NOTED. WILL MONITOR AND MEDICATE PER PRN ORDERS.
--- NOTE | 2021-02-28 21:10 | NUR ---
BLOOD FOR VANCO TROUGH COLLECTED AND SENTR TO LAB
--- NOTE | 2021-02-28 23:07 | NUR ---
PT RESTING COMFORTABLY. NO S/S OF PAIN. BP RESPONDED WELL INITIALLY TO PRN MED. WILL CONTINUE TO MONITOR. PT TOLERATES TURNING AND REPOSITIONING WELL. OPENS EYES DURING REPOSITIONING. MOVES EXTREMITIES DURING REPOSITIONING. NO DISTRESS.
[2021-03-01] VITALS (22 sets, daily range): BP systolic 141–208; BP diastolic 71–100
--- NOTE | 2021-03-01 00:53 | NUR ---
PT RESTS COMFORTABLY WITH EYES CLOSED. PT OPENS EYES AND TURNS TOWARDS VOICE DRING CARE BUT DOES NOT APPEAR TO MAKE EYE CONTACT.
--- NOTE | 2021-03-01 03:00 | NUR ---
PT WITH EYES OPEN, BITING ON ETT, MOIVING HEAD AND EXTREMITIES. PT REPOSITIONED FOR COMFORT. PLAN TO TITRATE PROFOFOL FOR LIGHT TO MODERATE SEDATION.
--- NOTE | 2021-03-01 03:57 | NUR ---
PT RESTING MORE COMFORTABLY. NO DISTRESS NOTED. WILL CONTINUE TO MONITOER CLOSELY.
--- NOTE | 2021-03-01 06:00 | NUR ---
PT MOVES HEAD ON COMMAND. MOVES EXTREMITIES, BUT NOT ON COMMAND AT THIS TIME.
--- NOTE | 2021-03-01 06:00 | NUR ---
BLOOD COLLECTED AND SENT TO LAB
[2021-03-01 06:17] LABS: HEMOGLOBIN 12.5 g/dl (14.0-18.0); IMMATURE GRANULOCYTES 1.4 % (0.0-5.0); MEAN CELL VOLUME 101.9 fL CALC (80.0-100.0); MEAN CORPUSCULAR HGB 33.5 pG CALC (26.0-32.0); MEAN CORPUSCULAR HGB CONC 32.9 g/dL CAL (32.0-36.0); NEUT# 9.09 thou/uL (1.82-7.42); RED BLOOD COUNT 3.73 mill/uL (4.70-6.10); RED CELL DISTRI WIDTH 13.6 % (11.5-15.5)
[2021-03-01 06:50] LABS: ANION GAP 9 (6-22 (CALC)); BUN 34 mg/dL (8-23); BUN/CREATININE RATIO 38 (12-20 (CALC)); CARBON DIOXIDE 22 mmol/l (22-30); CHLORIDE 116 mmol/l (95-108); CREATININE 0.9 mg/dL (0.7-1.3); GFR > 60 ML/MIN (>=60 (CALC)); GFR FOR AFR.AMER. > 60 ML/MIN (>=60 (CALC)); POTASSIUM 3.8 mmol/l (3.5-5.1); SODIUM 144 mmol/l (137-146)
--- NOTE | 2021-03-01 07:07 | NUR ---
REPORT GIVEN TO DAN. PONCE
--- NOTE | 2021-03-01 08:53 | NUR ---
DR SMYTH AT BESIDE TO DO WAKING NEUROLOGICAL EXAM. DURING EXAM PLACED PT ON WEANING TRIAL OF PS 5 PEEP 5 50% FIO2. PT HAD VOLUMES OF 347 AND RATE OF 27-[address]. SMYTH DID NOT WANT TO EXTUBATE TODAY DUE TO WORSENING CHEST XRAY. RT NOTED EXCESSIVE ABDOMINAL AND ACCESSORY MUSCLE USE DURING BREATHING TRAIL. BREATHING TRIAL ENDED.
--- NOTE | 2021-03-01 10:36 | NUR ---
PT SEEN SEDATED, VENTED, RESTING IN THE BED IN NO DISTRESS. PT WAS WEANED OFF DIPRIVAN FOR DR SMYTH TO EVALUATE, REQUIRED RETURN OF DIPRIVAN PER RESTLESSNESS. NG WAS SEEN TO BE OCCLUDED, REMOVED, UNABLE TO RESTART AT THIS TIME X 2.
--- NOTE | 2021-03-01 13:22 | NUR ---
PT WITH CATALINA STARTED NOW FOR SEDATION HE WAS STILL RESTLESS WITH DIPRIVAN INFUSING AT 70.
--- NOTE | 2021-03-01 15:35 | NUR ---
PT REMAINS SEDATED WITH VERSED AND DIPRIVAN, DOES STILL OPEN HIS EYES ON OCCASION. NO DISTRESS, NO DISCOMFORT NOTED.
--- NOTE | 2021-03-01 18:11 | NUR ---
OG INSERTED SUCCESSFULLY, CONNECTED TO LIS. DRESSING CHANGED TO RIGHT IJ SITE, REQUIRED SHAVING FIRST. PT TOLERATED WELL PER SEDATION.
--- NOTE | 2021-03-01 21:55 | NUR ---
PATIENT IS SEDATED, ON VENTILATOR, AC, RATE 26, TV 450, FIO2 50%, PEEP 5, SIZE 8, 23 CM AT THE LIP. LAYS WITH HOB 30 DEGREES. NURSE ASSESSMENT PERFORMED. SPO2 95%. BP HIGH 170'S SYSTOLIC, WILL PROVIDE BP IV MEDICATION. SR/PACED, HR 60'S-70'S. VERIFIED PLACEMENT OF OG VIA AUSCULTATION, IS ON LIS, DRAINAGE IS DARK BROWN/RED. MOTH CARE PROVIDED. HAS BLOODY SALIVA FROM MOUTH, NOTHING FROM ET. RIJ TRIPLE LUMEN INTACT, FLUSHES AND RETURNS BLOOD PROPERLY. VERSED, DIPRIVAN, NS IV FLUIDS INFUSING PER PROTOCOL. VANCOMYCIN INFUSING NOW SECONDARY. BILAT UE BRUSING NOTED. EDEMA NOTED TO UE BILATERALLY/PITTING. RESTRAIMTS RELEASED FOR NURSING CARE/ROM, PLACED BACK ON/INTACT. BAGLEY CATHETER INTACT/ CHUY/CLEAR. SCD'S TAKEN OFF AND PLACED BACK ON. AIR MATRESS INTACT. SKIN IS DRY/WARM, FEET ARE DRY/COOL. HAS A RFA SKIN TEAR WITH A DRESSING, AND A STAGE 2 COCCYX ULCER. WILL CONTINUE TO MONITOR.
--- NOTE | 2021-03-01 22:00 | NUR ---
LABETOLOL GIVEN FOR ELEVATED BP.
[2021-03-02] VITALS (23 sets, daily range): BP systolic 120–214; BP diastolic 60–93
--- NOTE | 2021-03-02 00:58 | NUR ---
SUCTIONAL SMALL AMOUNT OF SALIVA FROM MOUTH. VENT SETTINGS REMAIN THE SAME, SPO2 95%.
--- NOTE | 2021-03-02 02:46 | NUR ---
PATIENT WAS WASHED UP, PULLED UP, MOUTH CARE PROVIDED, SUCTIONING PROVIDED. ALL EXETREMS ELEAVTED WITH PILLOWS. SCD'S ON. PATIENT DID OPEN HIS EYES WHILE WASHING HIM UP, DIPRIVAN TITRATED. LINENS CHANGED. DRESSING TO R-MEDIAL FOREARM SKIN TEAR CLEANSED AND CHANGED. DRESSING CHANGED TO COCCXY, WAS CLEANSED.
--- NOTE | 2021-03-02 05:17 | NUR ---
PATIENT LAYS WITH HOB 30 DEGREES. VENT SETTINGS UNCHANGED. SPO2 97%.
--- NOTE | 2021-03-02 05:32 | NUR ---
RT KIMBLE IN ROOM TO OBTAIN ABG
[2021-03-02 05:36] LABS: HEMATOCRIT 37.1 % (39.0-50.0); HEMOGLOBIN 12.4 g/dl (14.0-18.0); IMMATURE GRANULOCYTES 1.3 % (0.0-5.0); MEAN CELL VOLUME 101.9 fL CALC (80.0-100.0); MEAN CORPUSCULAR HGB 34.1 pG CALC (26.0-32.0); MEAN CORPUSCULAR HGB CONC 33.4 g/dL CAL (32.0-36.0); NEUT# 7.33 thou/uL (1.82-7.42); RED BLOOD COUNT 3.64 mill/uL (4.70-6.10); RED CELL DISTRI WIDTH 13.8 % (11.5-15.5)
[2021-03-02 05:55] LABS: ANION GAP 10 (6-22 (CALC)); BUN 32 mg/dL (8-23); BUN/CREATININE RATIO 37 (12-20 (CALC)); CARBON DIOXIDE 21 mmol/l (22-30); CHLORIDE 116 mmol/l (95-108); CREATININE 0.9 mg/dL (0.7-1.3); GFR > 60 ML/MIN (>=60 (CALC)); GFR FOR AFR.AMER. > 60 ML/MIN (>=60 (CALC)); SODIUM 144 mmol/l (137-146)
--- NOTE | 2021-03-02 07:42 | NUR ---
PT SEEN SEDATED, VENTED, AT REST IN THE BED IN NO DISTRESS. LUNGS CLEAR BUT DIMINISHED, 50% FIO2. COCCYX STAGE II PER PREVIOUS SHIFT, ON ROTATING MATTRESS. DIPRIVAN AND VERSED SEDATE.
--- NOTE | 2021-03-02 10:50 | NUR ---
DR MATHUR HAS SEEN PT, WANTED TO HAVE PT AWAKE. VERSED STOPPED, PT REMAINS ON DIPRIVAN UNTIL DR MATHUR RETURNS.
--- NOTE | 2021-03-02 13:03 | NUR ---
Performed SBT for 25 minutes. tidal volume 550, resp. rate 26, on 10 pressure support and 5 of peep. Maintained volumes and rate and 02 sat was 95% on 50% oxygen. Changed setting to SIMV 16, TV 450, PS 10, PEEP 5, FIO2 50%. Will monitor vitals.
--- NOTE | 2021-03-02 14:18 | NUR ---
PT HAS BEEN WITHOUT SEDATION FOR EVALUATION BY DR MATHUR AND RESPIRATORY THERAPIST HOLLY. PT TOLERATING BREATHING ON HIS OWN. ABG DRAWN WITH GOOD RESULTS. WILL EVALUATE IF PT READY FOR EXTUBATION WHEN RT RETURNS TO BEDSIDE.
--- NOTE | 2021-03-02 14:19 | NUR ---
S: EVERETTE HERNANDEZ is a 71 M who presents with COVID-19 pneumonia. He has a history of CAD, COPD, diabetes, HTN, AAA, and CABG post-pacemaker. All medications in patient's chart were reviewed. O: VS: BP 164/77 mmHg, P 64 bpm, RR 25 breath/min, T 96.5 F W 116.3 kg, HT 76 in, Scr= 1 mg/dL, CrCl= 94 ml/min A: Blood cultures show no growth. P: Patient is on cefepime 2g IV Q8H. Vancomycin ordered for pharmacy to dose. Start Vancomycin 1g IV Q12H. Vancomycin trough is drawn before the 4th dose on 03/03/21 at 2100. Vancomycin goal trough is between 15-20 mcg/ml. Pharmacy will follow and or advise on antibiotics use as needed.
--- NOTE | 2021-03-02 15:25 | NUR ---
PT SEEN STRUGGLING AND DESATTING. RT WAS CALLED, ABLE TO SUCTION, CHANGE OUT TUBING, RESET VENT AT PROPER SETTING. PT NOW WITH SATS IN THE UPPER 90s, SEDATION INFUSING TO ALLOW PT REST.
--- NOTE | 2021-03-02 17:05 | NUR ---
PT CLEANED UP FOR STOOL INCONTINENCE, TOLERATED WITHOUT WAKING. PT WITH DRESSING TO COCCYX AREA, DID NOT NEED REPLACEMENT.
--- NOTE | 2021-03-02 21:29 | NUR ---
PATIENT LAYS WITH HOB 30 DEGREES. VENT SETTINGS: AC, TV 450, PEEP 5, RATE 26, FIO2 40%, SPO2 96%. TUBE FEEDING WAS STOPPED AND OG TUBE WAS REMOVED DUE TO PATIENT HAD TUBE FEEDING COMING OUT OF RIGHT SIDE OF MOUTH. MOUTH WAS SUCTIONED WITH HAD MODERATE AMOUNT OF TUBE FEED. NO PHLEGM OR TUBE FEED NOTED FROM ET TUBE WHEN SUCTIONED. PATIENT DID HAVE EYES OPEN AND WAS MOVING HEAD. A R-NARE NG TUBE WAS PLACED AFTER UNSUCCESSFUL ATTEMPTS THROUGH THE MOUTH. PLACED HIM ON LIS AND TUBE FEED WITH BLOOD NOTED. ALSO CHANGED THE RIJ CENTRAL LINE DRESSING DUE TO SOILED. NURSE ASSESSMENT PERFORMED. PATIENT HAS EDEMETOUS 2+ PITTING BILAT ARMS. EXTREMETIES ELEVATED WITH PILLOWS. BAGLEY IS INTACT HAS CHUY/CLEAR URINE. ALL LUMENS ON RIJ FLUSH AND RETURN BLOOD PROPERLY. ANTIBITOIC INFUSING NOW, PROPOFOL INFUSING PER PROTOCOL. AIR MATRESS INTACT. SCD'S TAKEN OFF FOR ASSESSMENT, INTACT NOW. PACED ON TELEMETRY, HR 60'S. BP 140'S SYSTOLIC.
--- NOTE | 2021-03-02 22:30 | NUR ---
MOUTH CARE PROVIDED. PATIENT HAS BLOODY/CLOUDY PHLEGM FROM MOUTH.
[2021-03-03] VITALS (24 sets, daily range): BP systolic 134–184; BP diastolic 66–95
--- NOTE | 2021-03-03 02:31 | NUR ---
PARTIAL BED BATH PROVIDED. MOUTH CARE PROVIDED, NO PHLEGM FROM ET TUBE. SCANT SALIVA/PHLEGM FROM MOUTH SUCTIONED. AQUACELL PAD INTACT ON COCCYX. DID PLACE NEW DRESSING ON LEFT HAND SKIN TEAR, CLEANSED, APPLIED NONADHERENT GAUZE WITH GAUZE WRAP. ALL EXTREMS ELEVATED WITH PILLOWS. NO TUBE FEEDING PROVIDED DUE TO NO GURLING HEARD WHEN VERIFYING PLACEMENT.
[2021-03-03 06:04] LABS: HEMATOCRIT 37.9 % (39.0-50.0); HEMOGLOBIN 12.6 g/dl (14.0-18.0); MEAN CELL VOLUME 102.7 fL CALC (80.0-100.0); MEAN CORPUSCULAR HGB 34.1 pG CALC (26.0-32.0); MEAN CORPUSCULAR HGB CONC 33.2 g/dL CAL (32.0-36.0); NEUT# 8.1 thou/uL (1.82-7.42); RED BLOOD COUNT 3.69 mill/uL (4.70-6.10); RED CELL DISTRI WIDTH 13.8 % (11.5-15.5)
[2021-03-03 06:37] LABS: ALBUMIN 2.5 g/dL (3.2-5.0); ALKALINE PHOSPHATASE 50 u/l (38-126); ANION GAP 10 (6-22 (CALC)); BILIRUBIN, TOTAL 0.3 mg/dL (0.0-1.4); BUN 31 mg/dL (8-23); BUN/CREATININE RATIO 35 (12-20 (CALC)); C-REACTIVE PROTEIN 1.3 mg/dL (0-0.9); CARBON DIOXIDE 21 mmol/l (22-30); CHLORIDE 117 mmol/l (95-108); CREATININE 0.9 mg/dL (0.7-1.3); GFR > 60 ML/MIN (>=60 (CALC)); GFR FOR AFR.AMER. > 60 ML/MIN (>=60 (CALC)); POTASSIUM 3.7 mmol/l (3.5-5.1); SGOT/AST 16 u/l (19-48); SODIUM 144 mmol/l (137-146); TOTAL PROTEIN 4.9 g/dL (6.3-8.2)
--- NOTE | 2021-03-03 07:46 | NUR ---
PT SEEN AT REST IN THE BED, SEDATED AND VENTED. LUNGS ARE CLEAR BUT DIMINISHED, 40% FIO2. DIPRIVAN AT 70.
--- NOTE | 2021-03-03 09:36 | NUR ---
no changes at his time. pt vss. nad. change hme. pt mei well. baggage handling supervisor to monitor.
--- NOTE | 2021-03-03 10:35 | NUR ---
sbt initiated and dc'd. pt did well, but concerns with wob and bleeding. pt responds appropriately but delayed. placed pn prior vent settings. mei well at this time. steam generating powerplant mechanic to monitor.
--- NOTE | 2021-03-03 10:37 | NUR ---
PT SEEN WITH SHALLOW BREATHING, SOMEWHAT LABORED DURING TRIAL WEANING THIS MORNING. HIS ANSWERS TO QUESTIONS ARE APPROPRIATE, DENIES PAIN. BLAIRE FROM [facility] UPDATED WHEN SHE CALLED.
--- NOTE | 2021-03-03 13:44 | NUR ---
no changes at this time. nad. vss. design teacher to monitor.
--- NOTE | 2021-03-03 16:13 | NUR ---
PT REMAINS SEDATED AND VENTED, RESTING IN THE BED IN NO ACUTE DISTRESS. PROPROFOL CONTINUES AT 70 MK.
--- NOTE | 2021-03-03 17:37 | NUR ---
RIGHT HAND SKIN TEAR OOZING, REWRAPPED. PT UNABLE TO BE EXTUBATED TODAY.
--- NOTE | 2021-03-03 20:00 | NUR ---
PATIENT INTUBATED ON VENT. VENT SETTINGS PER VENT INTERVENTION. SUX ORALLY FOR THICK BLOOD TINGES SECRETIONS. PROPOFOL GTT INFUSING AT 70 MCG/KG/MIN. RASS -2. PATIENT OPENS EYES TO NAME, TRACKS SPEAKER. SHIFT ASSESSMENT COMPLETED. CARDAIC MONITOR SHOWS PACED RHYTH WITH PVC'S. BP TRWNDING UP, WILL MONITOR.
--- NOTE | 2021-03-03 22:06 | NUR ---
BP 180'S/80'S. MEDICATED WITH HYDRALAZINE 10 MG IVP ORDERED FOR ELEAVTED BP. REPOSITIONED IN BED ON AIR MATTRESS.
--- NOTE | 2021-03-03 23:00 | NUR ---
BP CAME DOWN TO 140/67 AFTER HYDRALAZINE GIVEN EARLIER.
[2021-03-04] VITALS (23 sets, daily range): BP systolic 111–195; BP diastolic 55–91
--- NOTE | 2021-03-04 | NUR ---
NO CHANGES TO REPORT. VSS. INTUABTED AND SEDATED. VENT SETTINGS UNCHANGED.
--- NOTE | 2021-03-04 02:00 | NUR ---
COMPLETE BED BATH GIVEN. LINENS CHANGED. TURNED AND REPOSITIONED.
--- NOTE | 2021-03-04 04:40 | NUR ---
BLOOD DRAWN FROM [facility] FOR AM LABS.
[2021-03-04 05:22] LABS: HEMATOCRIT 35.9 % (39.0-50.0); HEMOGLOBIN 12.3 g/dl (14.0-18.0); MEAN CORPUSCULAR HGB 34.9 pG CALC (26.0-32.0); MEAN CORPUSCULAR HGB CONC 34.3 g/dL CAL (32.0-36.0); RED BLOOD COUNT 3.52 mill/uL (4.70-6.10); RED CELL DISTRI WIDTH 13.7 % (11.5-15.5)
[2021-03-04 05:35] LABS: ANION GAP 8 (6-22 (CALC)); BUN 27 mg/dL (8-23); BUN/CREATININE RATIO 31 (12-20 (CALC)); CARBON DIOXIDE 22 mmol/l (22-30); CHLORIDE 117 mmol/l (95-108); CREATININE 0.8 mg/dL (0.7-1.3); GFR > 60 ML/MIN (>=60 (CALC)); GFR FOR AFR.AMER. > 60 ML/MIN (>=60 (CALC)); POTASSIUM 3.7 mmol/l (3.5-5.1); SODIUM 143 mmol/l (137-146)
[2021-03-04 05:36] LABS: MAGNESIUM 2.4 mg/dL (1.6-2.3)
--- NOTE | 2021-03-04 08:18 | NUR ---
PT SEEN SEDATED, VENTED, RESTING IN THE BED IN NO ACUTE DISTRESS. PT WITH WEEPING NOTED FROM BILATERAL ARMS, WHICH ARE NOW RESTING ON PADS.
--- NOTE | 2021-03-04 11:36 | NUR ---
S: EVERETTE HERNANDEZ is a 71 M who presents with COVID-19 pneumonia. He has a history of CAD, COPD, diabetes, HTN, AAA, and CABG post-pacemaker. All medications in patient's chart were reviewed. O: VS: BP 144/73 mmHg, P 66 bpm, RR 26 breath/min, T 97.1 F W 117.6 kg, HT 76 in, Scr= 0.8 (1) mg/dL, CrCl= 113 ml/min A: Blood cultures from 02/23/21 show no growth. P: Patient is on cefepime 2g IV Q8H. Vancomycin ordered for pharmacy to dose. Vanco trough on 03/04/21 = 16 with goal trough of 15-20 mcg/ml. Continue Vancomycin 1g IV Q12H. Next Vancomycin trough drawn on 03/06/21 at 0830, prior to the 0900 dose. Pharmacy will follow and or advise on antibiotics use as needed.
--- NOTE | 2021-03-04 12:05 | NUR ---
PT AT REST IN THE BED PER SEDATION. SUCTIONING PROVIDED EVIDENCE OF BLOODY PHLEGM, THUS EXTUBATION POSTPONED. PT WAS ABLE TO OPEN HIS EYES AND TRACK WHEN PROPOFOL WAS OFF, BUT THIS HAS BEEN RESUMED.
--- NOTE | 2021-03-04 15:07 | NUR ---
weaned paramters per pt spo2. pt mei well. nad. vss. front desk representative to monitor.
--- NOTE | 2021-03-04 16:07 | NUR ---
PT REMAINS SEDATED AND VENTED IN THE BED, NO PURPOSEFUL MOVEMENT PER PROPOFOL DRIP.
--- NOTE | 2021-03-04 18:47 | NUR ---
SON IRENE HERNANDEZ HAS CALLED HOSPITAL AND WAS UPDATED ON FATHER'S CONDITION. PHONE NUMBER GOTTEN, WILL PASS ON TO DR MATHUR IN AM. [phone].
--- NOTE | 2021-03-04 19:00 | NUR ---
REPORT RECEIVED FROM Landon SALDANA RN. CARE OF PT ASSUMED AT THIS TIME.
[2021-03-05] VITALS (11 sets, daily range): BP systolic 111–200; BP diastolic 62–91
--- NOTE | 2021-03-05 04:20 | NUR ---
AM LAB WORK COLLECTED FROM [facility] W/O DIFFICULTY.
[2021-03-05 05:17] LABS: ANION GAP 8 (6-22 (CALC)); BUN 24 mg/dL (8-23); BUN/CREATININE RATIO 30 (12-20 (CALC)); CARBON DIOXIDE 25 mmol/l (22-30); CHLORIDE 113 mmol/l (95-108); CREATININE 0.8 mg/dL (0.7-1.3); GFR > 60 ML/MIN (>=60 (CALC)); GFR FOR AFR.AMER. > 60 ML/MIN (>=60 (CALC)); POTASSIUM 3.5 mmol/l (3.5-5.1); SODIUM 143 mmol/l (137-146)
--- NOTE | 2021-03-05 05:20 | NUR ---
ASSISTED IN PLACEMENT OF FILM PLATE AND POSITIONING FOR PCXR. PCXR DONE BY [facility].
--- NOTE | 2021-03-05 05:30 | NUR ---
PT TURNED AND SMALL SMEARED BM CLEANED UP. NEW INCONTINENCE PAD PLACED. COCCYX DRESSING INTACT. RIGHT FORARM SKINTEAR DRESSING REMOVED. SMALL SKIN TEAR WITH SKIN FLAP ROLLED OVER TEAR AND WELL APPROXIMATED. CLEAN AND MOIST. TELFA PAD PLACED AND WRAPPED WITH CLING GAUZE. L-HAND SKIN TEAR WRAP REMOVED. XEROFORM LEFT INTACT TO NOT DISTURB FORMATION OF NEW CLOT. RE-WRAPPED WITH CLING GAUZE.
[2021-03-05 05:40] LABS: HEMATOCRIT 34.8 % (39.0-50.0); HEMOGLOBIN 11.6 g/dl (14.0-18.0); MEAN CELL VOLUME 100.9 fL CALC (80.0-100.0); MEAN CORPUSCULAR HGB 33.6 pG CALC (26.0-32.0); MEAN CORPUSCULAR HGB CONC 33.3 g/dL CAL (32.0-36.0); RED BLOOD COUNT 3.45 mill/uL (4.70-6.10); RED CELL DISTRI WIDTH 13.6 % (11.5-15.5)
--- NOTE | 2021-03-05 05:45 | NUR ---
B. SANCHEZ SUBASSEMBLER AT BEDSIDE COLLECTING ABG.
--- NOTE | 2021-03-05 08:00 | NUR ---
PATIENT IS VENTED AND SEDATED. 2MM PERRLA, SLUGGISH. ORAL CARE PROVIDED. SUCTIONED. NG PLACEMENT GOOD. NORMAL PACED HEART SOUNDS. DIMINISHED LUNG SOUNDS THROUGHOUT. ABDOMEN IS SOFT, ROUND WITH HYPOACTIVE BOWEL SOUNDS. EDEMA 2+ ON BILATERAL ARMS AND HANDS. STRONG PULSES. SCDS ON AND WORKING. TURNED OFF SEDATION AFTER TITRATING IT PER PROTOCOL. SAFETY MEASURES IN PLACE. WILL COTNINUE TO MONIOR PER HOSPITAL'S POLCIY.
--- NOTE | 2021-03-05 08:34 | NUR ---
no changes at this time. pharmacy buyer to monitor. nad. vss.
--- NOTE | 2021-03-05 09:15 | NUR ---
after speaking with patient's soon, dr. horne stated to remove the tube, continue to monitor him, any signs or symtoms of discomfort to start comfort measures with prn medications. son agreed with process/plan verbally to doctor horne.
--- NOTE | 2021-03-05 10:46 | NUR ---
RT spoke with doctor horne and doctor stated what he spoke to me about earlier, comfort measures if needed due to any s/s of distress, after removing the tube.
--- NOTE | 2021-03-05 11:04 | NUR ---
terminal extubation as per md order. rn in room c senior project coordinator and pt.
--- NOTE | 2021-03-05 11:50 | NUR ---
PATIENT WAS EXUTBATED APPOX 1050, 1150 HAD NO PULSE, HIS PACE MAKER CONTINUED TO PACED. PACEMAKER MAGNET WAS PLACED, STILL CONTINUES TO PACE.
--- NOTE | 2021-03-05 12:00 | NUR ---
DR. MATHUR CALLED AND SPOKE TO THE SON ABOUT WHAT HAPPENED.
--- NOTE | 2021-03-05 12:27 | NUR ---
[facility] WAS CALLED, THEY WILL NOT BE CALLING US BACK DUE TO HIM BEING COVID+. SPOKE WITH AKHIL MEDRANO #[id number] REFERENCE NUMBER.
--- NOTE | 2021-03-05 13:44 | NUR ---
PATIENT'S SON TOLD DR. MATHUR THAT [facility] SHOULD HAVE EVERYTHING REGAURDING THE HOME THE FATHER WANTED. CALLED [facility] TWICE OFF [employer], ONCE OFF A CELL PHONE AND THEY ANSWERED. STATED THAT THEY WILL HAVE [facility] CALL US BACK ON THE ARRANGEMENTS THE PATIENT REQUESTED ON FILE.
--- NOTE | 2021-03-05 15:10 | NUR ---
CALLED [facility] STATED THEY DO NOT HAVE THAT INFORMATION, FAMILY HAS IT ONLY. THE ONLY PERSON IN THE BUILDING WHO HAS ACCESS TO THAT INFORMATION IS NOT HERE ON THE WEEKENDS. CALLED HIS SON IRENE, THE SON SAID THAT A IN [place] IS OKAY.
--- NOTE | 2021-03-05 15:44 | NUR ---
GOT OFF THE PHONE WITH [facility], KAREN STATED THAT SHE WILL SET UP TRANSPORT. THEY SHOULD BE HERE TO DIE SINKER THE PATIENT IN AN HOUR TO AN HOUR AND HALF.
--- NOTE | 2021-03-05 19:30 | NUR ---
[facility] [employer]INE REPAIRER PRESENT FOR MANUFACTURING TECHNICIAN OF PT'S REMAINS.
== END 2021-03-05 19:30 | disposition expired | DRG 915 ==
LOC: ED 05:50 → ED-I 09:50 → ED 10:09 → ED-I 10:09 → ICU 10:09
PROVIDERS: Emergency Medicine; Internal Medicine; ADMIT Hospitalist; ATTEND Hospitalist
PROC: 5A12012 Performance of Cardiac Output, Single, Manual (ICD-10-PCS; principal; 2021-02-23)
PROC: 5A1955Z Respiratory Ventilation, Greater than 96 Consecutive Hours (ICD-10-PCS; 2021-02-23)
PROC: 0BH17EZ Insertion of Endotracheal Airway into Trachea, Via Natural or Artificial Opening (ICD-10-PCS; 2021-02-23)
PROC: 02HV33Z Insertion of Infusion Device into Superior Vena Cava, Percutaneous Approach (ICD-10-PCS; 2021-02-23)
PROC: B548ZZA Ultrasonography of Superior Vena Cava, Guidance (ICD-10-PCS; 2021-02-23)
PROC: 0T9B70Z Drainage of Bladder with Drainage Device, Via Natural or Artificial Opening (ICD-10-PCS; 2021-02-23)
PROC: XW043E5 Introduction of Remdesivir Anti-infective into Central Vein, Percutaneous Approach, New Technology Group 5 (ICD-10-PCS; 2021-02-23)
DX: T88.6XXA Anaphylactic reaction due to adverse effect of correct drug or medicament properly administered, initial encounter (principal); U07.1 COVID-19; J12.82 Pneumonia due to coronavirus disease 2019; J96.01 Acute respiratory failure with hypoxia; J44.0 Chronic obstructive pulmonary disease with (acute) lower respiratory infection; G93.49 Other encephalopathy; T50.8X5A Adverse effect of diagnostic agents, initial encounter; E87.6 Hypokalemia; E83.42 Hypomagnesemia; I46.8 Cardiac arrest due to other underlying condition; E11.9 Type 2 diabetes mellitus without complications; I10 Essential (primary) hypertension; I25.10 Atherosclerotic heart disease of native coronary artery without angina pectoris; I49.5 Sick sinus syndrome; F17.200 Nicotine dependence, unspecified, uncomplicated; Z95.1 Presence of aortocoronary bypass graft; Z95.0 Presence of cardiac pacemaker; Z79.84 Long term (current) use of oral hypoglycemic drugs; Z66 Do not resuscitate
CPT/HCPCS: J0692; J1650; J2060; J2250; J3370; J3475; Q9967